=== PATIENT | female | born 1965 | race Caucasian/White ===

== ENCOUNTER 2020-07-25 22:23 | Inpatient (IN) ==
[2020-07-26] MEDS ORDERED: SODIUM CHLORIDE 0.9% 1,000 ML IV STA (00:20)
[2020-07-26 01:23] LABS: Hematocrit 40.8 VOL% (35.7-47.0); Hemoglobin 13.9 GM/DL (12.0-16.0); Immature Granulocytes % 0.6 %; Immature Granulocytes Absolute 0.03 #; Lymphocytes # 0.8 10*3/uL (1.4-4.0); Lymphocytes % 15.7 % (21.3-54.2); Mean Corpuscular HGB Conc 34.1 GM/DL (32-36); Mean Corpuscular Volume 88.7 FL (87-102); Mean Platelet Volume 9.9 FL (9.6-12.0); Monocytes % 7.4 % (1.7-12.7); Neutrophils % 76.3 % (38.7-73.9); Platelet Count 206 T/CUMM (130-400); Red Cell Distribution Width 12.4 % (9.3-17.3)
[2020-07-26 01:30] LABS: Albumin 3.4 G/DL (3.4-5.0); Bilirubin,Total 0.4 MG/DL (0.2-1.0); Calcium 8.5 MG/DL (8.5-10.1); Ferritin 610.2 ng/ml (8-252); Osmolality,Calculated 267.2 MOS/KG (273-304); Total Protein 7.7 G/DL (6.4-8.3)
[2020-07-26] MEDS ORDERED: GLUCAGON 1 MG VIAL IM PRN (05:53)
[2020-07-26] MEDS ORDERED: ONDANSETRON 4 MG/2 ML VIAL IV PRN (05:53)
[2020-07-26] MEDS ORDERED: DOCUSATE SODIUM 100 MG CAPSULE PO PRN (05:53)
[2020-07-26] MEDS ORDERED: DEXTROSE 50% 25 GM/50 ML VIAL IV PRN (05:53)
[2020-07-26] MEDS ORDERED: AZITHROMYCIN INJ 500 MG in SODIUM CHLORIDE 0.9% 250 ML IV SCH (06:00)
[2020-07-26] MEDS: cefTRIAXone 1,000 MG in SYRINGE 1 EACH IV SCH (06:21)
[2020-07-26] MEDS: ACETAMINOPHEN 325 MG TABLET PO PRN ×4 (06:22→21:20)
[2020-07-26] MEDS: LEVOTHYROXINE 50 MCG TABLET PO SCH (06:22)
[2020-07-26] MEDS ORDERED: DEXAMETHASONE 10 MG/1 ML VIAL IV SCH (09:00)
[2020-07-26] MEDS: AZITHROMYCIN 250 MG TABLET PO SCH (09:02)
[2020-07-26] MEDS: ZINC SULFATE 220 MG CAPSULE PO SCH (09:46)
[2020-07-26] MEDS: FAMOTIDINE 20 MG TABLET PO SCH ×2 (09:46→20:14)
[2020-07-26] MEDS: CHOLECALCIFEROL 1,000 UNIT TABLET PO SCH (09:46)
[2020-07-26] MEDS: ALBUTEROL INHALER 18 GM INH SCH ×3 (09:46→18:42)
[2020-07-26] MEDS: ENOXAPARIN 40 MG/0.4 ML SYRINGE SUBCUT SCH (09:46)
[2020-07-26] MEDS: ASCORBIC ACID 500 MG TABLET PO SCH (10:24)
[2020-07-26] MEDS: CETIRIZINE 10 MG TABLET PO SCH (10:24)
[2020-07-26] MEDS: BENZONATATE 100 MG CAPSULE PO SCH (20:14)
[2020-07-27] MEDS: ALBUTEROL INHALER 18 GM INH SCH ×4 (01:25→18:44)
[2020-07-27] MEDS: ACETAMINOPHEN 325 MG TABLET PO PRN ×3 (01:40→20:26)
[2020-07-27] MEDS: LEVOTHYROXINE 50 MCG TABLET PO SCH (05:58)
[2020-07-27] MEDS: cefTRIAXone 1,000 MG in SYRINGE 1 EACH IV SCH (05:58)
[2020-07-27 06:31] LABS: Basophils % 0.4 % (0.0-0.8); Hematocrit 38.8 VOL% (35.7-47.0); Hemoglobin 12.7 GM/DL (12.0-16.0); Immature Granulocytes % 0.5 %; Immature Granulocytes Absolute 0.03 #; Lymphocytes # 1.5 10*3/uL (1.4-4.0); Lymphocytes % 27.7 % (21.3-54.2); Mean Corpuscular HGB Conc 32.7 GM/DL (32-36); Mean Corpuscular Volume 91.9 FL (87-102); Mean Platelet Volume 10.3 FL (9.6-12.0); Monocytes % 5.3 % (1.7-12.7); Neutrophils % 66.1 % (38.7-73.9); Platelet Count 240 T/CUMM (130-400); Red Blood Count 4.22 MC/CUMM (3.8-5.5); Red Cell Distribution Width 12.7 % (9.3-17.3); White Blood Count 5.5 T/CUMM (4-12)
[2020-07-27 06:56] LABS: Calcium 8.4 MG/DL (8.5-10.1); Osmolality,Calculated 274.7 MOS/KG (273-304)
[2020-07-27] MEDS: ENOXAPARIN 40 MG/0.4 ML SYRINGE SUBCUT SCH (08:29)
[2020-07-27] MEDS: DEXAMETHASONE 10 MG/1 ML VIAL IV SCH (08:29)
[2020-07-27] MEDS: BENZONATATE 100 MG CAPSULE PO SCH ×3 (08:30→20:27)
[2020-07-27] MEDS: ASCORBIC ACID 500 MG TABLET PO SCH (08:30)
[2020-07-27] MEDS: AZITHROMYCIN 250 MG TABLET PO SCH (08:30)
[2020-07-27] MEDS: FAMOTIDINE 20 MG TABLET PO SCH ×2 (08:33→20:27)
[2020-07-27] MEDS: CETIRIZINE 10 MG TABLET PO SCH (08:41)
[2020-07-27] MEDS: CHOLECALCIFEROL 1,000 UNIT TABLET PO SCH (10:17)
[2020-07-27 16:43] LABS: Bacteria,Urine Occasional /HPF (Few); Bilirubin,Urine Negative (Negative); Blood, Urine Negative (Negative); Glucose,Urine (UA) Negative (Negative); Ketones,Urine Negative (Negative); Nitrite,Urine Negative (Negative); Protein,Urine Negative; RBC,Urine 2 /HPF (0-4); Squamous Epithelial Cell,Urine Occasional /HPF (0-10); Urine Appearance CLEAR (Clear); Urine Color Straw (Yellow); Urine Specific Gravity 1.003 (1.001-1.035); Urine Urobilinogen < 2.0 EU/DL (0.2-1.0); WBC,Urine 1 /HPF (0-6)
[2020-07-28] MEDS: ALBUTEROL INHALER 18 GM INH SCH ×4 (00:14→18:13)
[2020-07-28] MEDS: LEVOTHYROXINE 50 MCG TABLET PO SCH (06:04)
[2020-07-28] MEDS: cefTRIAXone 1,000 MG in SYRINGE 1 EACH IV SCH (06:05)
[2020-07-28 06:14] LABS: Hematocrit 39.1 VOL% (35.7-47.0); Hemoglobin 13.2 GM/DL (12.0-16.0); Immature Granulocytes % 0.7 %; Immature Granulocytes Absolute 0.06 #; Lymphocytes % 12.5 % (21.3-54.2); Mean Corpuscular HGB Conc 33.8 GM/DL (32-36); Mean Corpuscular Volume 90.3 FL (87-102); Mean Platelet Volume 9.6 FL (9.6-12.0); Monocytes % 7.1 % (1.7-12.7); Neutrophils % 79.7 % (38.7-73.9); Platelet Count 298 T/CUMM (130-400); Red Blood Count 4.33 MC/CUMM (3.8-5.5); Red Cell Distribution Width 12.5 % (9.3-17.3); White Blood Count 8.2 T/CUMM (4-12)
[2020-07-28 06:38] LABS: Band Neutrophils 2 % (0-10); Hypochromasia 1+; Lymphocytes 9 % (20-55); Microcytosis 1+; Platelet Estimate Adequate; Segmented Neutrophils 83 % (50-85); Total Cells Counted 100
[2020-07-28 06:52] LABS: Calcium 8.8 MG/DL (8.5-10.1); Osmolality,Calculated 276.7 MOS/KG (273-304)
[2020-07-28 07:31] LABS: Sedimentation Rate-Westergren 90 MM/HR (0-30)
[2020-07-28] MEDS: CHOLECALCIFEROL 1,000 UNIT TABLET PO SCH (08:30)
[2020-07-28] MEDS: AZITHROMYCIN 250 MG TABLET PO SCH (08:30)
[2020-07-28] MEDS: FAMOTIDINE 20 MG TABLET PO SCH ×2 (08:30→20:40)
[2020-07-28] MEDS: ASCORBIC ACID 500 MG TABLET PO SCH (08:30)
[2020-07-28] MEDS: CETIRIZINE 10 MG TABLET PO SCH (08:31)
[2020-07-28] MEDS: ENOXAPARIN 40 MG/0.4 ML SYRINGE SUBCUT SCH (08:31)
[2020-07-28] MEDS: DEXAMETHASONE 10 MG/1 ML VIAL IV SCH (08:31)
[2020-07-28] MEDS: ZINC SULFATE 220 MG CAPSULE PO SCH (08:31)
[2020-07-28] MEDS: BENZONATATE 100 MG CAPSULE PO SCH ×3 (08:31→20:40)
[2020-07-28 10:31] LABS: HIV Antigen/Antibody Result Nonreactive (Nonreactive)
[2020-07-28] MEDS: HYDROcodone/CHLORPHENIRAMINE ER 5 ML UDCUP PO SCH ×2 (14:20→20:51)
[2020-07-28] MEDS: ACETAMINOPHEN 325 MG TABLET PO PRN (19:36)
[2020-07-29] MEDS: ALBUTEROL INHALER 18 GM INH SCH ×3 (01:01→12:50)
[2020-07-29] MEDS: LEVOTHYROXINE 50 MCG TABLET PO SCH (06:00)
[2020-07-29] MEDS: cefTRIAXone 1,000 MG in SYRINGE 1 EACH IV SCH (06:00)
[2020-07-29] MEDS: DEXAMETHASONE 10 MG/1 ML VIAL IV SCH (08:27)
[2020-07-29] MEDS: ASCORBIC ACID 500 MG TABLET PO SCH (08:28)
[2020-07-29] MEDS: ENOXAPARIN 40 MG/0.4 ML SYRINGE SUBCUT SCH (08:28)
[2020-07-29] MEDS: CETIRIZINE 10 MG TABLET PO SCH (08:28)
[2020-07-29] MEDS: CHOLECALCIFEROL 1,000 UNIT TABLET PO SCH (08:28)
[2020-07-29] MEDS: FAMOTIDINE 20 MG TABLET PO SCH (08:28)
[2020-07-29] MEDS: HYDROcodone/CHLORPHENIRAMINE ER 5 ML UDCUP PO SCH (08:29)
[2020-07-29] MEDS: AZITHROMYCIN 250 MG TABLET PO SCH (08:29)
[2020-07-29] MEDS: BENZONATATE 100 MG CAPSULE PO SCH (08:41)
[2020-07-29 11:19] VITALS: BP 132/88
== END 2020-07-29 13:13 | disposition home or self-care (01) | DRG 177 ==
LOC: N.ED 22:23 → N.EDINP 07-26 03:16 → INTOOBSV 07-26 03:16 → N.2E 07-26 03:41
PROVIDERS: ADMIT Internal Medicine; ATTEND Internal Medicine